=== PATIENT | female | born 1970 | race Two or more races ===

== ENCOUNTER → 2019-09-28 | Outpatient (CLI) | payer BC ==
[~2019-09-28] MED LIST: CEPH-368 PO; ERGO500017 PO; HYDR-3237 PO; LETR2.5T3 PO; LISI-167 PO; OXYC-302 PO; PROM25SU34 PO
[2019-09-28 08:58] LABS: BASOPHILS # (AUTO) 0.02 x10^3/uL (0-0.1); BASOPHILS % (AUTO) 0 % (0-1); EOSINOPHILS # (AUTO) 0.22 x10^3/uL (0-0.4); EOSINOPHILS % (AUTO) 4 % (1-7); LYMPHOCYTES # (AUTO) 1.74 x10^3/uL (1-3.4); LYMPHOCYTES % (AUTO) 28 % (22-44); MD NO; MEAN CORPUSCULAR HEMOGLOBIN 33.7 pg (27.0-34.8); MEAN CORPUSCULAR HGB CONC 34.8 g/dL (32.4-35.8); MEAN CORPUSCULAR VOLUME 96.8 fL (80-100); MEAN PLATELET VOLUME 9.2 fL (7.4-10.4); MONOCYTES # (AUTO) 0.52 x10^3/uL (0.2-0.8); MONOCYTES % (AUTO) 9 % (2-9); NEUTROPHILS # (AUTO) 3.69 x10^3/uL (1.8-6.8); NEUTROPHILS % (AUTO) 60 % (42-75); PLATELET COUNT 316 x10^3/uL (130-400); RED BLOOD COUNT 4.74 x10^6/uL (3.82-5.3); RED CELL DISTRIBUTION WIDTH 12.4 % (9.6-15.2)
== END | disposition home or self-care (01) ==
LOC: STAR 07:53
PROVIDERS: ATTEND Plastic Surgery
DX: Z01.818 Encounter for other preprocedural examination (principal); C50.812 Malignant neoplasm of overlapping sites of left female breast; Z15.01 Genetic susceptibility to malignant neoplasm of breast; Z85.3 Personal history of malignant neoplasm of breast
CPT/HCPCS: 36415; 85025; 93005

== ENCOUNTER 2020-01-12 05:31 | Day surgery (SDC) | payer BC ==
[~2020-01-12] VITALS: Ht 152.4 cm; Wt 73.0 kg
[2020-01-12 06:02] VITALS: BP 181/80
[2020-01-12] MEDS ORDERED: LACTATED RINGERS 1,000 ML IV SCH (06:05)
[2020-01-12] MEDS ORDERED: CHLORHEXIDINE 15 ML UDC MM STA (06:06)
[2020-01-12] MEDS ORDERED: CHLORHEXIDINE 15 ML UDC ONE (06:10)
[2020-01-12 06:25] VITALS: BP 181/80
[2020-01-12] MEDS ORDERED: CEFAZOLIN 1,000 MG ONE (06:50)
[2020-01-12] MEDS ORDERED: BUPIVACAINE/EPI 0.5% 1:200K ONE (06:50)
[2020-01-12] MEDS ORDERED: BACITRACIN 50,000 UNIT ONE (06:50)
[2020-01-12] MEDS ORDERED: GENTAMICIN 80 MG/2 ML ONE (06:50)
[2020-01-12] MEDS ORDERED: LABETALOL 5MG/ML, 20ML ONE (07:02)
[2020-01-12] MEDS ORDERED: MAGNESIUM SULFATE 1 GM/2 ML ONE (07:02)
[2020-01-12] MEDS ORDERED: LIDOCAINE 1%, 20ML ONE (07:03)
[2020-01-12] MEDS ORDERED: PROPOFOL 10 MG/ML, 20ML ONE (07:04)
[2020-01-12] MEDS ORDERED: LIDOCAINE-MPF 2% ,5ML ONE (07:04)
[2020-01-12] MEDS ORDERED: DEXAMETHASONE 4 MG/ML, 1ML ONE (07:04)
[2020-01-12] MEDS ORDERED: GLYCOPYRROLATE 0.2MG/1ML, 5ML ONE (07:04)
[2020-01-12] MEDS ORDERED: ROCURONIUM 10MG/ML,5ML ONE (07:04)
[2020-01-12] MEDS ORDERED: MIDAZOLAM 1 MG/ML, 2ML ONE (07:05)
[2020-01-12] MEDS ORDERED: FENTANYL PF 250 MCG/5ML ONE (07:05)
[2020-01-12 07:06] LABS: BASOPHILS # (AUTO) 0.08 x10^3/uL (0-0.1); BASOPHILS % (AUTO) 1 % (0-1); EOSINOPHILS # (AUTO) 0.19 x10^3/uL (0-0.4); EOSINOPHILS % (AUTO) 3 % (1-7); LYMPHOCYTES # (AUTO) 1.83 x10^3/uL (1-3.4); LYMPHOCYTES % (AUTO) 30 % (22-44); MD NO; MEAN CORPUSCULAR HEMOGLOBIN 33.4 pg (27.0-34.8); MEAN CORPUSCULAR HGB CONC 34.3 g/dL (32.4-35.8); MEAN CORPUSCULAR VOLUME 97.4 fL (80-100); MEAN PLATELET VOLUME 9.6 fL (7.4-10.4); MONOCYTES # (AUTO) 0.51 x10^3/uL (0.2-0.8); MONOCYTES % (AUTO) 8 % (2-9); NEUTROPHILS # (AUTO) 3.54 x10^3/uL (1.8-6.8); NEUTROPHILS % (AUTO) 58 % (42-75); PLATELET COUNT 304 x10^3/uL (130-400); RED BLOOD COUNT 4.53 x10^6/uL (3.82-5.3); RED CELL DISTRIBUTION WIDTH 12.9 % (9.6-15.2)
[2020-01-12] MEDS ORDERED: SCOPOLAMINE 1MG PATCH TD ONE (07:22)
[2020-01-12] MEDS ORDERED: HYDROcodone/APAP 7.5-325MG/15ML UDC PO PRN (07:30)
[2020-01-12] MEDS ORDERED: LORazepam 2 MG/ML, 1ML IVPush PRN (07:30)
[2020-01-12] MEDS ORDERED: SCOPOLAMINE 1MG PATCH TD SCH (07:30)
[2020-01-12] MEDS ORDERED: HYDROmorphone 1 MG/ML, 1ML INJ IVPush PRN (07:30)
[2020-01-12] MEDS ORDERED: DIPHENHYDRAMINE 50 MG/ML, 1ML IVPush PRN (07:30)
[2020-01-12] MEDS ORDERED: KETOROLAC 30 MG/1 ML IVPush PRN ×2 (07:30→12:30)
[2020-01-12] MEDS ORDERED: MIDAZOLAM 1 MG/ML, 2ML IV PRN (07:30)
[2020-01-12] MEDS ORDERED: METHOCARBAMOL 1,000 MG in DEXTROSE 5% 100 ML IV PRN (07:30)
[2020-01-12] MEDS ORDERED: METOCLOPRAMIDE 5 MG/ML, 2ML IVPush PRN (07:30)
[2020-01-12] MEDS ORDERED: ONDANSETRON 2MG/ML, 2ML IVPush PRN (07:30)
[2020-01-12] MEDS ORDERED: LABETALOL 5MG/ML, 20ML IV PRN (07:30)
[2020-01-12] MEDS ORDERED: ALBUTEROL/IPRATROPIUM 2.5MG/0.5MG, 3 ML NPPB PRN (07:30)
[2020-01-12] MEDS ORDERED: EPHEDRINE 50 MG/ML, 1ML IM PRN (07:30)
[2020-01-12] MEDS ORDERED: FENTANYL PF 100 MCG/2ML IV PRN (07:30)
[2020-01-12] MEDS ORDERED: MEPERIDINE/PF 25MG/0.5ML IVPush PRN (07:30)
[2020-01-12] MEDS ORDERED: OXYcodone 5 MG/5 ML ORAL.SOL UDC PO PRN (07:30)
[2020-01-12] MEDS ORDERED: ACETAMINOPHEN 325 MG TABLET PO PRN (07:30)
[2020-01-12] MEDS ORDERED: morphine SULFATE 10 MG/ML, 1ML IVPush PRN (07:30)
[2020-01-12] MEDS ORDERED: hydrALAzine 20 MG/ML, 1ML IV PRN (07:30)
[2020-01-12] MEDS ORDERED: DIAZEPAM 5 MG/ML, 2ML IVPush PRN (07:30)
[2020-01-12] MEDS ORDERED: EPHEDRINE 50 MG/ML, 1ML IVPush PRN (07:30)
[2020-01-12] MEDS ORDERED: HALOPERIDOL 5 MG/ML IV PRN (07:30)
[2020-01-12] MEDS ORDERED: OXYcodone 5 MG/5 ML ORAL.SOL UDC ONE (09:58)
[2020-01-12] MEDS ORDERED: FENTANYL PF 100 MCG/2ML ONE (09:58)
== END 2020-01-12 14:15 | disposition home or self-care (01) ==
LOC: OUT 05:31
PROVIDERS: ATTEND Plastic Surgery
DX: Z40.01 Encounter for prophylactic removal of breast (principal); Z11.59 Encounter for screening for other viral diseases; N60.01 Solitary cyst of right breast; E66.9 Obesity, unspecified; Z68.22 Body mass index [BMI] 22.0-22.9, adult; Z79.899 Other long term (current) drug therapy; Z85.3 Personal history of malignant neoplasm of breast; Z90.12 Acquired absence of left breast and nipple; Z92.3 Personal history of irradiation
CPT/HCPCS: 15777; 19303; 19357; 36415; 85025; 87635; 88307; 93005; C1729; C1762; C1789; J0690; J1100; J1580; J1885; J2250; J2704; J3010; J3475; J7120

== ENCOUNTER → 2021-02-27 | Outpatient (CLI) | payer BC, OTHER ==
[~2021-02-27] MED LIST changes: +Calcium PO; -OXYC-302 PO; +OXYC1TAB14 PO
[2021-02-27 08:38] LABS: BASOPHILS % (AUTO) 1 % (0-1); EOSINOPHILS % (AUTO) 4 % (1-7); LYMPHOCYTES % (AUTO) 40 % (22-44); MEAN CORPUSCULAR HEMOGLOBIN 33.1 pg (27.0-34.8); MEAN CORPUSCULAR HGB CONC 34.9 g/dL (32.4-35.8); MEAN PLATELET VOLUME 9.3 fL (7.4-10.4); MONOCYTES % (AUTO) 8 % (2-9); NEUTROPHILS % (AUTO) 48 % (42-75); PLATELET COUNT 301 x10^3/uL (130-400); RED BLOOD COUNT 4.59 x10^6/uL (3.82-5.3); RED CELL DISTRIBUTION WIDTH 12.6 % (9.6-15.2)
[2021-02-27 08:48] LABS: INTERNATIONAL NORMALIZED RATIO 0.97 (0.93-1.1); PROTHROMBIN TIME 10.4 Seconds (9.6-11.5)
[2021-02-27 10:13] LABS: ALANINE AMINOTRANSFERASE 94 U/L (12-78); ALBUMIN 3.7 g/dL (3.4-5.0); ANION GAP 6 mmol/L (5-15); CALCIUM 8.6 mg/dL (8.5-10.1); CHLORIDE 105 mmol/L (98-107); CREATININE 0.48 mg/dL (0.55-1.02)
[2021-02-27 10:16] LABS: ALKALINE PHOSPHATASE 130 U/L (45-117); BILIRUBIN,TOTAL 0.6 mg/dL (0.2-1.0); TOTAL PROTEIN 7.9 g/dL (6.4-8.2)
== END | disposition home or self-care (01) ==
LOC: STAR 07:23
PROVIDERS: ATTEND Obstetrics & Gynecology
DX: Z01.818 Encounter for other preprocedural examination (principal); Z15.02 Genetic susceptibility to malignant neoplasm of ovary; Z17.0 Estrogen receptor positive status [ER+]; N95.1 Menopausal and female climacteric states
CPT/HCPCS: 36415; 71046; 80053; 85025; 85610; 85730; 86304; 93005

== ENCOUNTER 2021-03-04 11:19 | Day surgery (SDC) | payer BC, OTHER ==
[~2021-03-04] VITALS: Ht 157.5 cm; Wt 72.2 kg
[~2021-03-04 11:19] MED LIST changes: +BUPIVACAINE/PF-EPI 0.25% 1:200K ONE
[2021-03-04] MEDS ORDERED: CHLORHEXIDINE 15 ML UDC PO ONE (12:00)
[2021-03-04 12:07] VITALS: BP 165/93
[2021-03-04 12:27] LABS: HCG UR SG 1.027 (1.003-1.030)
[2021-03-04] MEDS ORDERED: PLEASE ENTER HEIGHT MC SCH (12:30)
[2021-03-04] MEDS ORDERED: CEFOTETAN PMX 2GM/50ML 50 ML IVPB ONE (12:30)
[2021-03-04] MEDS: LACTATED RINGERS 1,000 ML IV SCH ×2 (12:46→20:20)
[2021-03-04] MEDS ORDERED: MIDAZOLAM 1 MG/ML, 2ML ONE (13:51)
[2021-03-04] MEDS ORDERED: FENTANYL PF 250 MCG/5ML ONE (13:51)
[2021-03-04] MEDS ORDERED: MEPERIDINE/PF 25MG/0.5ML IVPush PRN (17:00)
[2021-03-04] MEDS ORDERED: FENTANYL PF 100 MCG/2ML IV PRN (17:00)
[2021-03-04] MEDS ORDERED: ALBUTEROL SULFATE 2.5 MG/3 ML NPPB PRN (17:00)
[2021-03-04] MEDS ORDERED: LABETALOL 5MG/ML, 20ML IV PRN (17:00)
[2021-03-04] MEDS ORDERED: DIAZEPAM 5 MG/ML, 2ML IV PRN ×2 (17:00)
[2021-03-04] MEDS ORDERED: ONDANSETRON 2MG/ML, 2ML IVPush PRN (17:00)
[2021-03-04] MEDS ORDERED: METOCLOPRAMIDE 5 MG/ML, 2ML IV PRN (17:00)
[2021-03-04] MEDS ORDERED: hydrALAzine 20 MG/ML, 1ML IV PRN (17:00)
[2021-03-04] MEDS ORDERED: PROMETHAZINE 25 MG/ML, 1ML IV PRN (17:00)
[2021-03-04] MEDS ORDERED: HYDROmorphone 1 MG/ML, 1ML INJ IV PRN (17:00)
[2021-03-04] MEDS ORDERED: OXYcodone 5 MG/5 ML ORAL.SOL UDC PO PRN (17:00)
[2021-03-04] MEDS ORDERED: KETOROLAC 30 MG/1 ML IV PRN (17:00)
[2021-03-04] MEDS ORDERED: OXYcodone 5 MG/5 ML ORAL.SOL UDC ONE (17:06)
[2021-03-04] MEDS ORDERED: FENTANYL PF 100 MCG/2ML ONE (17:06)
[2021-03-04] MEDS ORDERED: HYDROmorphone 2 MG/ML, 1ML ONE (17:48)
[2021-03-04] MEDS ORDERED: ONDANSETRON 2MG/ML, 2ML ONE (19:54)
[2021-03-04] MEDS ORDERED: KETOROLAC 30 MG/1 ML ONE (20:17)
== END 2021-03-04 21:25 | disposition home or self-care (01) ==
LOC: OUT 11:19
PROVIDERS: ATTEND Obstetrics & Gynecology
DX: Z15.01 Genetic susceptibility to malignant neoplasm of breast (principal); N73.6 Female pelvic peritoneal adhesions (postinfective); I10 Essential (primary) hypertension; M81.8 Other osteoporosis without current pathological fracture; Z20.822 Contact with and (suspected) exposure to COVID-19; Z78.0 Asymptomatic menopausal state; Z79.899 Other long term (current) drug therapy; Z85.3 Personal history of malignant neoplasm of breast; Z90.12 Acquired absence of left breast and nipple; Z90.49 Acquired absence of other specified parts of digestive tract; Z92.21 Personal history of antineoplastic chemotherapy; Z92.3 Personal history of irradiation; Z80.49 Family history of malignant neoplasm of other genital organs
CPT/HCPCS: 36415; 58552; 81025; 86850; 86900; 86923; 87635; 88112; 88305; 88309; J1170; J1885; J2250; J2405; J3010; J7120; S2900